=== PATIENT | male | born 1985 | race Caucasian/White ===

== ENCOUNTER 2018-06-12 14:48 | Emergency (ER) | payer OTHER | END 2018-06-12 17:49 | disposition left against medical advice (07) | LOC: FTE 17:49 | DX: S09.90XA Unspecified injury of head, initial encounter (principal); R51 Headache; V89.2XXA Person injured in unspecified motor-vehicle accident, traffic, initial encounter | CPT/HCPCS: 70450; 72125; 99284-25 ==